=== PATIENT | female | born 1955 | race Caucasian/White ===

== ENCOUNTER 2024-01-23 17:37 | Emergency (ER) | payer MEDICARE ==
[2024-01-23] MEDS ORDERED: methylPREDNISolone Sod Succ 125 MG/2 ML VIAL IV ONE (18:00)
[2024-01-23] MEDS ORDERED: BEET ROOT-TART1 EACH PO (18:00)
[2024-01-23] MEDS ORDERED: Albuterol/Ipratropium 3 MG-0.5 MG/3 ML Neb Soln IH ONE ×2 (18:00→19:00)
[2024-01-23] MEDS ORDERED: MASON NATURAL100 MG PO (18:01)
[2024-01-23 18:06] LABS: BASO # 0.01 K/mm3 (0.02-0.10); EOS # 0.09 K/mm3 (0.04-0.40); HEMATOCRIT 44.1 % (37.0-47.0); HEMOGLOBIN 14.4 g/dL (12.5-16.0); LYMPH# 2.26 K/mm3 (1.50-4.00); MEAN CELL VOLUME 93 fl (78-100); MEAN CORPUSCULAR HEMOGLOBIN 30 pg (27-31); MEAN CORPUSCULAR HGB CONC 33 g/dL (33-37); MEAN PLATELET VOLUME 10.5 fl (7.4-10.4); MONO # 1.23 K/mm3 (0.20-0.80); NEU # 5.84 K/mm3 (1.40-6.50); PLATELET COUNT 187 K/mm3 (130-400); RED BLOOD COUNT 4.73 M/mm3 (4.10-5.30); RED CELL DISTRIBUTION WIDTH 12.4 % (11.5-14.5); WHITE BLOOD COUNT 9.4 K/mm3 (4.8-10.8)
[2024-01-23 18:16] LABS: ALBUMIN 4.2 g/dL (3.4-4.8); SODIUM 142 mmol/L (136-145)
[2024-01-23 18:17] LABS: CALCIUM 9.5 mg/dL (8.3-10.5)
[2024-01-23 18:18] LABS: GLUCOSE 161 mg/dL (65-105); TOTAL PROTEIN 7.3 g/dL (6.2-8.1)
[2024-01-23 18:19] LABS: CARBON DIOXIDE 27 mmol/L (23-31)
[2024-01-23 18:20] LABS: TOTAL BILIRUBIN 0.3 mg/dL (0.2-1.2)
[2024-01-23 18:24] LABS: AST-SGOT 15 U/L (5-34)
[2024-01-23 18:25] LABS: ALT/SGPT 13 U/L (0-55)
[2024-01-23 18:31] LABS: TROPONIN-I < 0.030 ng/mL (0.00-0.033)
[2024-01-23] MEDS ORDERED: NS 500 ML IV SCH ×2 (18:45→20:15)
[2024-01-23 19:23] LABS: D-DIMER 0.53 mg/L FEU (0.15-0.50)
[2024-01-23] MEDS ORDERED: LORazepam 2 MG/ML VIAL IV ONE (20:45)
[2024-01-23] MEDS ORDERED: IPRATROPIUM BROM3 M1 IH (21:21)
[2024-01-23] MEDS ORDERED: PREDNISONE20 M1 PO (21:21)
[2024-01-23 21:34] VITALS: BP 121/76
== END 2024-01-23 21:34 | disposition home or self-care (01) ==
LOC: ED 17:37
PROVIDERS: Physician Assistant
DX: R07.89 Other chest pain (principal); R00.0 Tachycardia, unspecified; J44.1 Chronic obstructive pulmonary disease with (acute) exacerbation; F17.210 Nicotine dependence, cigarettes, uncomplicated
CPT/HCPCS: J2060; J2919; J7040